=== PATIENT | male | born 1950 | race Caucasian/White ===

== ENCOUNTER 2018-08-08 16:34 | Emergency (ER) | payer OTHER ==
[~2018-08-08] VITALS: Ht 165.1 cm; Wt 89.8 kg
[~2018-08-08 16:34] MED LIST: ACIDOPHILUS1 EAC3 PO; ASPIRIN EC81 M1 PO; AZOR 5-40 MG T1 EACH PO; CLEOCIN HCL300 MG PO; FLEXERIL PO; FLOMAX0.4 MG PO; LIPITOR10 MG PO; LOMOTIL TABLET1 EACH PO; MOBIC15 MG PO; MULTIVITAMINS PO; NORCO 5-325 TA1 EAC1 PO; NORCO 5-325 TA1 EACH PO; OXYCODONE HCL15 MG PO; PERCOCET 5-3251 EACH PO; PROVENTIL HFA6.7 G1 INH; PULMICORT FLE180 MCG IH; VICODIN 5-5001 EACH PO; ZEGERID 40 MG1 EACH PO; ZYRTEC10 M2 PO
[2018-08-08 17:40] LABS: URINE BILIRUBIN NEGATIVE (Negative); URINE BLOOD NEGATIVE (Negative); URINE CLARITY CLEAR; URINE COLOR YELLOW; URINE GLUCOSE-RANDOM NEGATIVE (Negative); URINE KETONES NEGATIVE (Negative); URINE LEUKOCYTES-REFLEX NEGATIVE (Negative); URINE NITRITE-REFLEX NEGATIVE (Negative); URINE PROTEIN NEGATIVE (Negative); URINE SPECIFIC GRAVITY <= 1.005 (1.005-1.030); URINE UROBILINOGEN 0.2 E.U./dl (0.2-1.0)
[2018-08-08] MEDS ORDERED: FLOMAX0.4 MG PO (18:01)
[2018-08-08 18:14] VITALS: BP 129/67
== END 2018-08-08 18:19 | disposition home or self-care (01) ==
LOC: M.ERS 16:34
PROVIDERS: Nurse Practitioner Family
DX: R33.9 Retention of urine, unspecified (principal); I10 Essential (primary) hypertension; Z96.643 Presence of artificial hip joint, bilateral; Z98.890 Other specified postprocedural states

== ENCOUNTER → 2020-02-26 | Outpatient (CLI) | payer OTHER | LOC: M.MRI 11:08 | PROVIDERS: ATTEND Family Medicine | DX: M51.37 Other intervertebral disc degeneration, lumbosacral region (principal); M47.816 Spondylosis without myelopathy or radiculopathy, lumbar region; M48.061 Spinal stenosis, lumbar region without neurogenic claudication ==